=== PATIENT | female | born 1965 | race Caucasian/White ===

== ENCOUNTER → 2020-12-28 09:18 | Outpatient (CLI) | payer OTHER, SELFPAY ==
[2020-12-28 10:33] LABS: COVID19 -Nasal RAPID Negative (Negative)
== END ==
PROVIDERS: PCP Nurse Practitioner Family; Visit Provider Surgery
DX: Z20.822 Contact with and (suspected) exposure to COVID-19 (principal); Z01.812 Encounter for preprocedural laboratory examination
CPT/HCPCS: 87635; C9803

== ENCOUNTER 2020-12-31 10:17 | Day surgery (SDC) | payer OTHER, SELFPAY ==
--- NOTE | 2020-12-31 | PATH_ITS ---
[facility] Accession Number: [id number] . 01 Material submitted: . PART A: rectum - RECTAL POLYP PART B: colon - SIGMOID COLON POLYP . 02 Diagnosis: A. Rectum, Polyp, Biopsy: Hyperplastic polyp. . B. Sigmoid Colon, Polyp, Biopsy: Hyperplastic polyp. MRV 01/02/2021 1401 Local . 02 Electronically signed: . Celine Julio MD, Pathologist NPI- [id number] . 01 Gross description: . Part A: RECTAL POLYP: Received in formalin is 1 fragment(s) of hills, soft tissue measuring 0.5 x 0.4 x 0.3 cm submitted entirely in 1 cassette(s) Part B: SIGMOID COLON POLYP: Received in formalin is 1 fragment(s) of hills, soft tissue measuring 0.4 x 0.3 x 0.3 cm submitted entirely in 1 cassette(s) /RULA 01/01/2021 0420 Local . 02 Pathologist provided ICD-10: K63.5 . 02 CPT . 303944, [id number] Performed at: 01 [facility] [address], [place], [place] [id number] MD Alexey Yates MD Phone: [phone] Performed at: [facility] [address] [place], [place] [id number] MD Celine Julio MD Phone: [phone]
[2020-12-31 10:43] VITALS: BP 137/78; PULSE 59; RESP 16; TEMP 36.6; O2SAT 100; BMI 22.0
[2020-12-31] MEDS: LACTATED RINGERS 1,000 ML 42 ML IV (11:05)
--- NOTE | 2020-12-31 11:32 | P.HP_ITS ---
History of Present Illness History of Present Illness Date Patient Seen: 12/31/20 Time Patient Seen: 11:35 Chief complaint: EGD COLONOSCOPY Narrative: 55-year-old woman here for elective colonoscopy and esophagoduodenoscopy. Personal history of colonic polyps and gastroesophageal reflux disease. Please see the H&P from September 2020 for further detail. There been no interval changes in health. Patient History Medical History Colon polyp GERD (gastroesophageal reflux disease) High cholesterol IBS (irritable bowel syndrome) Right knee meniscal tear Surgical History History of mandibular surgery Hx of tonsillectomy [place] teeth extracted Family & Social History Family History Mother Hypertension Diabetes mellitus Father Hypertension Social History: household members spouse Tobacco & Substance use: Tobacco type cigarettes Smoking Status Never smoker alcohol intake current alcohol intake frequency a few times a week Substance Use Type does not use Meds Home Medications and Allergies Home Medications Medication Instructions Recorded Confirmed Type atorvastatin 10 mg tablet 10 mg PO DAILY tab 10/25/20 12/31/20 History lorazepam 0.5 mg tablet 0.25 mg PO BEDTIME PRN tab 10/25/20 12/31/20 History sodium,potassium,mag sulfates 17.5 See Rx Instructions PO .COMPLEX 10/25/20 12/31/20 Rx gram-3.13 gram-1.6 gram oral soln #354 ml (Suprep Bowel Prep Kit) Allergies Allergy/AdvReac Type Severity Reaction Status Date / Time amoxicillin Allergy Nausea Verified 12/31/20 10:40 Exam Vital Signs (past 8 hours): - 12/31/20 10:43 Temperature 97.8 F Pulse Rate 59 L Respiratory Rate 16 Blood Pressure 137/78 Pulse Oximetry 100 Oxygen Delivery Method Room Air Narrative Exam Narrative: Constitutional-She is oriented to person, place and time. No apparent distress Cardiovascular- regular rate, no peripheral edema Pulmonary-unlabored respiratory effort, no audible wheezing Abdominal-soft, non-tender, non-distended Musculoskeletal-no cyanosis or clubbing Neurological-nonfocal, normal strength throughout, Skin-warm and dry Assessment & Plan Assessment and plan (1) GERD (gastroesophageal reflux disease): Qualifiers: Esophagitis presence: without esophagitis Qualified Code(s): K21.9 - Gastro-esophageal reflux disease without esophagitis Status: Acute Assessment & Plan narrative: 55-year-old woman history of colonic polyps and GERD here for EGD and colonoscopy. Technical details of the procedure were discussed with patient. Procedural risks including perioperative complications, bleeding, missed diagnosis, perforation were discussed. Her questions have been answered and she is in agreement with this plan. Time Spent With Patient Critical Care time: I spent a total of [] minutes of critical care time on this patient's care today; this time is exclusive of procedural time.
[2020-12-31] MEDS: LIDOCAINE 4% SOLN 50 ML 20 ML TOP (11:40)
[2020-12-31] MEDS: fentaNYL 250 MCG/5 ML INJ IV (12:02)
[2020-12-31] MEDS: MIDAZOLAM 5 MG/5 ML VIAL IV (12:15)
--- NOTE | 2020-12-31 12:27 | PM.OP.EC ---
Operative Date/Time/Diagnoses Date of procedure: 12/31/20 Time of procedure: 12:27 Pre-op diagnosis: Personal history of colonic polyps, GERD Post-op diagnosis: same Procedure & Clinicians Study performed: Esophagoduodenoscopy colonoscopy Same procedure as scheduled: Yes Indications: GERD personal history of colonic polyps Surgeon: Oscar Liu Procedure Notes Procedure in detail: Medications: Conscious sedation using 12mg IV midazolam and 250mcg IV of fentanyl The history and physical was performed/updated and the patient is ASA class is 1. The procedure was discussed in detail with the patient. Potential risks complications including infection, bleeding, missed diagnosis, perforation, need for surgery, and were explained. Their questions were answered and informed consent was obtained. Patient was brought to the procedure room and placed standard monitoring equipment. The patient's vital signs were monitored continuously throughout the entire procedure. Prior to starting time-out was performed. The patient was placed in the left lateral recumbent position. Time out was performed. Procedural sedation was administered with Versed and Fentanyl. A bite block was placed. the scope was inserted into the mouth and advanced through the esophagus and into the stomach. The pylorus was intubated and the duodenum was normal to the 2nd portion. The scope was retroflexed within the stomach and there was no hiatal hernia. No ulcers, or gastritis. The scope was withdrawn into the esophagus the Z line was seen at 35 cm from the incisions. There was no Ling's esophagitis or masses or strictures. Stomach was desufflated and scope removed. Patient tolerated procedure well. Procedural sedation was administered. Examination began with a thorough inspection of the perianal area there was no evidence of fissures, fistulae, external hemorrhoids or cutaneous malignancy. The colonoscopy scope was then placed into the anal canal and was advanced to the cecum, which was identified by the ileocecal valve, the appendiceal orifice and the confluence of the taenia. The scope was then slowly withdrawn examining colon thoroughly in all directions, irrigating it of any residual stool. FINDINGS 1. 5 mm rectal polyp removed biopsy forceps 2. 5 mm sigmoid colon polyp removed biopsy forceps 3. Diverticulosis 4. Tortuous colon The patient tolerated the procedure well. They will be discharged once criteria are met. The prep was of good/excellent quality. The withdrawl time was 8 minutes. The sedation time was 35minutes. Specimen(s): other (rectal, sigmoid polyps) Complications: none Impression: colonic polyps Post-procedure Recommendations: Colonscopy in 5 years Disposition: same day surgery
[2020-12-31 12:29] VITALS: BP 106/64; PULSE 70; RESP 14; TEMP 36.3; O2SAT 98
[2020-12-31 12:33] VITALS: BP 89/63; PULSE 63; RESP 16; O2SAT 95
[2020-12-31 12:40] VITALS: BP 104/63; PULSE 63; RESP 15; O2SAT 95
[2020-12-31 12:47] VITALS: BP 90/63; PULSE 62; RESP 15; TEMP 36.5; O2SAT 96
== END 2020-12-31 13:04 | disposition home or self-care (01) ==
PROVIDERS: PCP Nurse Practitioner Family; Referring Provider Surgery; Visit Provider Surgery
PROC: 0DJ08ZZ Inspection of Upper Intestinal Tract, Via Natural or Artificial Opening Endoscopic (ICD-10-PCS; CPT 43235; principal; 2020-12-31 11:30)
PROC: 0DJD8ZZ Inspection of Lower Intestinal Tract, Via Natural or Artificial Opening Endoscopic (ICD-10-PCS; CPT 45378; 2020-12-31 11:30)
DX: Z12.11 Encounter for screening for malignant neoplasm of colon (principal); Z86.010 Personal history of colon polyps; K21.9 Gastro-esophageal reflux disease without esophagitis; K57.30 Diverticulosis of large intestine without perforation or abscess without bleeding; K63.5 Polyp of colon
CPT/HCPCS: 45380; 43235; 99152; 99153; J2250; J3010